=== PATIENT | female | born 1955 | race Caucasian/White ===

== ENCOUNTER 2023-06-05 22:42 | Inpatient (IN) | payer OTHER ==
--- OUTSIDE RECORDS SUMMARY | 2023-06-05 22:48 | XMS REPORT | Continuity of Care Document ---
Author Name Unknown Address [address] [place] [address] [facility] thconnect Address [address] [place] [address] Care Team Providers Care Circuit Judge Name Role Phone Provider, [facility] Attending Clinician Un available AMEENA OSBORNE Attending Clinician Unavailable Lab, [facility] I Attending Clinician Unavailab Ameena Carpio Attending Clinician [phone] Payers Payer Name Policy Type Policy Number Effective Date Expirati on Date Source [employer] INDEMNITY [id number] 2018 00:00:00 Allergies, Adverse Reactions, Alerts Allergy Name Allergy Type Status Severity Reaction(s) Onset Date Inactive Date Treating Clinician Comments Source codeine DA Active MO 06-26 00:00: 00 [facility] codeine DA Active [place] 06-15 00:00: 00 [facility] hydrocod one DA Active [place] 06-15 00:00: 00 [facility] NO KNOWN ALLERGIE S Drug Class Active [facility] Social History Social Habit Start Date Stop Date Quantity Comments Source Sex Assigned At [facility] Exposure to SARS-CoV-2 (event) Not sure [facility] Smoking Status Start Date Stop Date Source Unknown if ever smoked [facility] Encounters Start Date/Time End Date/Time Encounter Type Admission Type Attending Clinicians Care Facility Care Department Encounter ID Source 2020-05-15 00:00:00 2020-05-15 00:00:00 Telephone Provider, [facility] Special[facility] yasmin Barakat 1..840.114 [id number] [facility] 2020-05-13 19:20:00 2020-05-13 19:20:00 Outpatient AMEENA MODI [facility] [id number] [facility] 2020-05-13 19:20:00 2020-05-13 13:38:40 Outpatient AMEENA OMDI [facility] [id number] [facility] 2020-05-13 11:03:45 2020-05-13 11:23:45 Laboratory Only Lab, [facility] Sameera CastilloFormerly [facility] Professio [facility] Office Building One 1..840.114 [id number] [facility] Results Test Description Test Time Test Comments Results Resul t Comments Source - XR KNEE 1 OR 2 V RT 2018-06-28 09:41:00 Patient Name: CHUYITA EAGLE Unit No: [id number] EXAMS: CPT CODE: [id number] XR KNEE 1 OR 2 V RT 56563 AP AND LATERAL VIEW OF THE RIGHT KNEE COMMENT: Patient is status post total right knee arthroplasty. The prosthesis appears to be in good position. at 0941 Reported and signed by: Bhakti Castano MD CC: Avni Hill MD Technologist: MARIAH SOLER (RT.R) Transcribed D/ (0941) t.RAFAEL.GVG [facility] NAME: CHUYITA EAGLE [address] [facility] PHYS: Avni Lundberg MD : 1955 AGE: 63 SEX: F [place], [place] [address] LOC: Y.314 A PHONE #: [phone] EXAM DATE: 06/27/2018 STATUS: ADM IN FAX #: [phone] RAD #: D/C DT PAGE 1 Signed Report Patient Name: CHUYITA EAGLE Unit No: [id number] EXAMS: CPT CODE: [id number] XR KNEE 1 OR 2 V RT 04112 (Continued) Orig Print D/T: S: 06/28/2018 (0944) [facility] NAME: CHUYITA EAGLE [address] [facility] PHYS: Avni Lundberg MD : 1955 AGE: 63 SEX: F [place], [place] [address] LOC: Y.314 A PHONE #: [phone] EXAM DATE: 06/27/2018 STATUS: ADM IN FAX #: [phone] RAD #: D/C DT PAGE 2 Signed Report HGB [id number] 05:44:00* Test Item Value Reference Range Interpretation Comme nts HEMOGLOBIN (test code = HGB) 13.0 g/dL 12-16 N HEMATOCRIT (test code = HCT) 39.4 % 37-47 N COMPREHENSIVE METABOLIC PNSNP1187-62-02 16:15:00* Test Item Value Reference Range Interpretation Comme nts SODIUM (test code = NA) 146 mmol/L 136-145 H POTASSIUM (test code = K) 4.4 mmol/L 3.5-5.1 N CHLORIDE (test code = CL) 106.0 mmol/L 98-107 N CARBON DIOXIDE (test code = CO2) 28.4 mmol/L 21-32 N GLUCOSE (test code = GLU) 96 mg/dL 70-110 N BLOOD UREA NITROGEN (test code = BUN) 21 mg/dL 7-18 H GLOMERULAR FILTRATION RATE (test code = GFR) 74.1 >60 Unit of m easure: mL/min/1.73 m0Ytssrvyei Range:Healthy Adults >90 mL/min/1.73 m2 For Chronic Kidney Disease: Stage II Mild Decrease in GFR 60-90 Stage III Moderate Decrease in GFR 30-59 Stage IV Severe Decrease in GFR 15-29 Stage V Kidney Failure <15 CREATININE (test code = CREAT) 0.78 mg/dL 0.55-1.30 N TOTAL PROTEIN (test code = PROT) 7.0 g/dL 6.4-8.2 N ALBUMIN (test code = ALB) 4.1 g/dL 3.4-5.0 N GLOBULIN (test code = GLOB) 2.9 g/dL 2.2-4.2 N ALBUMIN/GLOBULIN RATIO (test code = A/G) 1.4 0.7-2.0 N CALCIUM (test code = CA) 9.4 mg/dL 8.2-10.1 N BILIRUBIN TOTAL (test code = BILT) 0.50 mg/dL 0.2-1.00 N SGOT/AST (test code = AST) 32.0 U/L 15-37 N SGPT/ALT (test code = ALT) 41.0 U/L 12-78 N Please note new normal range. ALKALINE PHOSPHATASE TOTAL (test code = ALKP) 132 U/L 46-116 H CBC W/AUTO YLDV1289-67-13 15:31:00* Test Item Value Reference Range Interpretation Comme nts WHITE BLOOD CELL (test code = WBC) 9.2 K/mm3 5.8-11.0 N RED BLOOD CELL (test code = RBC) 5.03 M/mm3 4.2-5.4 N HEMOGLOBIN (test code = HGB) 14.2 g/dL 12-16 N HEMATOCRIT (test code = HCT) 44.0 % 37-47 N MEAN CELL VOLUME (test code = MCV) 88 fL 80-98 N MEAN CELL HGB (test code = MCH) 28.2 pg 27-34 N MEAN CELL HGB CONCENTRATION (test code = MCHC) 32.3 g/dL 30.8-34.1 N RED CELL DISTRIBUTION WIDTH (test code = RDW) 12.9 % 11-16 N PLT (test code = PLT) 305 K/mm3 130-400 N MEAN PLATELET VOLUME (test c ode = MPV) 10.4 fL 8.9-12.1 N NEUTROPHIL % (test code = NT%) 55.6 % 45-70 N LYMPHOCYTE % (test code = LY%) 30.7 % 20-40 N MONOCYTE % (test code = MO%) 6.8 % 3-10 N EOSINOPHIL % (test code = EO%) 5.3 % 1-5 H BASOPHIL % (test code = BA%) 1.2 % 0.0-1.1 H NEUTROPHIL # (test code = NT#) 5.13 K/mm3 2.00-7.50 N LYMPHOCYTE # (test code = LY#) 2.83 K/mm3 1.50-4.00 N MONOCYTE # (test code = MO#) 0.63 K/mm3 0.2-0.8 N EOSINOPHIL # (test code = EO#) 0.49 K/mm3 0.04-0.4 H BASOPHIL # (test code = BA#) 0.11 K/mm3 0.02-0.10 H MANUAL DIFF REQUIRED (test c ode = MDIFF) NO MANUAL DIFF NUCLEATED RED BLOOD CELL (te st code = NRBC) 0 % 0-0 N Notes Date/Time Note Provider Source 2018-06-28 11:19:00 [id number] QGtpt7+MkeyNDZhlMyzpt8RPhOi/S sydPOIQcigG76fBnDqGX10sMuC60PJRyj8551-90-94N80:19 :00 [facility] ([facility])Clinical NoteREPORT#:[id number] REPORT STATUS: SignedDATE:06/28/18 TIME: 1119 PATIENT: CHUYITA EAGLE UNIT #: [id number]#: [id number] [facility] [birth year] [facility] 63 SEX: F ATTEND: Avni Hill [facility] AUTHOR: Quinn Thibodeaux MD * ALL edits or amendments must be made on the electronic/computer document * Clinical NoteNote:[facility] Quinn Sheriff M.D.(cell text [phone]) Assessment/Plan1.) Anemia of acute blood loss- .Hgb 13.0, asymptomatic.2.) S/p Right TKA- .acute pain control. Anticoagulation as per Dr. Hill.3.) Hypertension- .follow BP and hold Rxs if SBP<120.4.) GERD- .continue on Rx.* OK for DISCHARGE per Internal Medicine. Prior Events/Overnight: Uneventful.Chief Complaint: No significant complaints. ObjectiveVital Signs Date Temp Pulse Resp B/P B/P Mean Pulse Ox FiO2 06/27-06/28 96.1-98.2 60-83 18-20 126-147/69-83 92-104.4 86-99 32-96 Gen: Alert, oriented, in mild discomfort Neck: No Masses, No Thyromegaly-CV: Regular Rate Rhythm / Edema- no significant Resp: Clear To Ascultation / Normal Respiratory EffortABD: NonTender / NonDistended MS/Skin: No Cyanosis / No nodules / +Ankle DF/PF / nl capillary refill of toes.Other: drain out Labs/X-ray: Laboratory Tests: 06/28 0450 Chemistry Sodium (136 - 145 mmol/L) 141 Potassium (3.5 - 5.1 mmol/L) 4.6 Chloride (98 - 107 mmol/L) 104.0 Carbon Dioxide (21 - 32 mmol/L) 26.0 BUN (7 - 18 mg/dL) 15 Creatinine (0.55 - 1.30 mg/dL) 0.88 Glomerular Filtr Rate (>60) 64.5 Glucose (70 - 110 mg/dL) 124 H Calcium (8.2 - 10.1 mg/dL) 8.7 Hematology Hgb (12 - 16 g/dL) 13.0 Hct (37 - 47 %) 39.4 Quinn Sheriff M.D. at 1220 RPT #:[id number] OF REPORT CLClinical otfo4302-84-01A84:19:00Y.JSLP65874808-0943WRCkcod able for patient ehynAPCNIWXTFSLMVK5842-80-27Z73:20:16 [facility] 2018-06-28 06:41:00 UUtnfelsxul0762813HI CTlTOr/0QBLPvyR/Z9U64OBi3A/Yv jLWUgSvLjNvMjTHPS6QVA0OSA8wbEHdZd0015-33-93V81:41 :[id number] [address] PATIENT NAME: CHUYITA EAGLE ADMIT DATE: 06/27/18ACCOUNT NO: [id number] ROOM NO: Y.[facility] AGE: 63 REPORT TYPE: DISCHARGE SUMMARY REPORT SEX: F ADMITTING PHYSICIAN:Avni Hill MD ATTENDING PHYSICIAN:Avni Hill MD ADMISSION DATE: 06/27/2018DISCHARGE DATE: 06/28/2018 ADMITTING DIAGNOSIS: Right knee osteoarthritis. PRIMARY DISCHARGE DIAGNOSIS: Right knee osteoarthritis, M17.11. OPERATIVE PROCEDURES PERFORMED: On 06/27/2018, RIGHT TOTAL KNEE ARTHROPLASTY,07989. BRIEF HISTORY OF PRESENT ILLNESS: Ms. Eagle is a very pleasant 01-otot-hnwtmhdyc, who has been having progressive pain, swelling, deformity involving theright knee. Her symptoms are occurring with daily activities. She is admittedfor right total knee arthroplasty. HOSPITAL COURSE: Ms. Eagle was taken to the operative suite on the date ofadmission where she underwent a right total knee arthroplasty withoutcomplications. Postoperatively, the patient received a total of 24 hours of IVantibiotic therapy. On the day of discharge, she is eating and voiding withoutdifficulty. Her dressing is dry and intact. Her neurovascular status isintact. Her hemoglobin is 13.0. She is independently ambulatory. Ms. Eagle will be discharged to home today. Office followup in 2 weeks. Outpatient physiotherapy has been prescribed. She is on aspirin as well ascompressive stockings for DVT prophylaxis. CONDITION ON DISCHARGE: She is in stable condition at the time of dischargewithout questions or complaints. DISCHARGE MEDICATIONS: Please see discharge medication reconciliation sheet. Dictated By: Avni Hill MD WT: DS:BAKARI/OSKAR/NTSDD: 06/28/2018 06:41:38DT: 06/29/2018 00:15:49Conf#: [id number]/DID#: [id number] Authenticated by Avni Hill MD On 06/29/2018 06:35:41 AM PATIENT NAME: CHUYITA EAGLE at 0636 PATIENT NAME: CHUYITA EAGLE gmvxqon4710-32-07G05:15:00Y.MKU50481987-7606GDTlr ilable for patient indxCWGZNQIZMIMLZB1551-99-00S76:35:36 [facility] 2018-06-27 17:11:00 PCnpqsnlniu9614189eu YS2hLV3T5mxpOkfe7iZaojbnPAIDR AnF2g4V+f7YUBT8sYELNyXlHYuOj40Uv/8765-41-01G23:11 :00 [facility] ([facility])Clinical NoteREPORT#:[id number] REPORT STATUS: SignedDATE:06/27/18 TIME: 1711 PATIENT: CHUYITA EAGLE UNIT #: [id number]#: [id number] ROOM/BED: [facility]-ADOB: [birth year] AGE: 63 SEX: F ATTEND: Avni Hill [facility] AUTHOR: Quinn Thibodeaux MD * ALL edits or amendments must be made on the electronic/computer document * Clinical NoteNote:[facility] Quinn Sheriff MD(cell text [phone])Internal Medicine Consult at request of : Dr Avni Hill Chief Complaint: Right knee pain HPI: .63 yo F with now s/p Right total knee arthroplasty (TKA) by Dr. Hill. Ms. Eagle relates years of progressive right knee pain (recently severe), worsewith activity, and achy and stiff at times in quality. She has failed conservative management. Comorbidities: see below. PmHx: .Hypertension, ALLERGY: Allergies:codeine (Coded, Intermediate, NAUSEA AND VOMITING, 06/26/18)hydrocodone (Coded, Intermediate, VOMITING, 06/15/18) Home Medications: Home Medications:IBUPROFEN (ADVIL) 400 MG PO Q6H PRN PAIN CHOLECALCIFEROL (VITAMIN D3) (VITAMIN D3) 1,000 UNITS PO DAILY ASCORBIC ACID (VITAMIN C) 500 MG PO DAILY SgHx: .cholecystectomy, CTR, Hysterectomy SHx: Tob: none FHx: .No significant hx of DVT/PE.Alcohol: none Drugs: none Lives: with spouse ROS: [X] all systems reviewed and negative except-[ ] Con: . Fever/ Wt loss [ ] CV: cpain/edema. [ ] Pul: . cough/SOB [ ] GI: hematemesis/diarrhea [ ] : . dysuria or hematuria [X] MS: knee pain[ ] Neuro: . headache/loss sensation [ ] Heme: . adenopathy/Ecchymosis Vitals:Vital Signs:Date Time Temp Pulse Resp B/P B/P Pulse O2 O2 Flow FiO2 Mean Ox Delivery Rate/ 1533 96.1 76 18 147/83 104.4 99 Nasal bdzxudn62/19 1142 96.8 65 14 156/82 106.6 97 Nasal oardrdq66/19 0921 96 Nasal 2.379274 28 dfmlmol96/19 0913 Nasal 3.316906 uqyvzjc94/19 0903 95.0 63 18 166/98 120.5 97 Nasal xyzndhn23/19 0840 98.2 67 14 160/90 97 Nasal 3.665251 eakajvl96/19 0830 63 20 165/86 94 Nasal 3.133087 uaadbfo93/19 0824 Nasal 3.855051 dolfupf08/19 0815 80 20 171/73 96 Nasal 3.249493 eoccymh02/19 0800 85 20 187/91 98 Nasal 3.363332 amwksmx24/19 0749 Venti mask 8.25969596/19 0746 98.0 81 16 116/64 94 Simple 8.546801 mask02/19 0635 97.3 55 20 185/80 98 Gen: Alert, in mild discomfort, nl nutrition.EYE: Nl lids conjunctiva.ENT: Nl ears Nose, nl lips,. Neck: Supple, nl thyroid, No masses.CV: Regular Rate Rhythm, no heave or significant murmur. Edema- none Feet toes normal temperature.RESP: Clear to Auscultation, normal Respiratory effort.ABD: Soft, NonDistended,.LYM: No significant cervical Lymphadenopathy.MS: No Clubbing, cyanosis, Knee is wrapped, drain in placeNEURO: Nonfocal, grossly normal sensation of LE, +Ankle DF/PFPSY: Normal insight, Normal mood, oriented, . Preop Labs (06/15/18): CBC:. Hgb 14.2, Plt 305, CHEM: Na 146, K 4.1, Cr 0.78(eGFR 74.1%),.EKG: Sinus bradycardia at 57 bpm (medium to high risk of complications or morbidity) (major surgery) (IV sedative, meds) Assessment Plan1.) Anemia of Acute Blood Loss- .will recheck 06/28/18. 2.) S/p Right TKA- .acute pain control. Anticoagulation as per Dr. Hill.3.) Hypertension- .follow BP and hold Rxs if SBP<120.4.) OsteoArthritis- .continue on symptomatic Rx. Quinn Sheriff M.D. Thanks! at 1220 RPT #:[id number] OF REPORT CLClinical nahg0439-95-55O80:11:00Y.TKVD07031959-1016ILFvxwi able for patient puqxOOVJPLGYOXFNMG5526-60-07L54:19:36 [facility] 2018-06-27 07:43:00 HWwdkhdacfi9240185bi WMxu52Ra7fL/usIgsO86Dy711dg8N 5vxDREJYIaghsDGedTr9k4ZJRi7EHZBOj7951-10-63Z87:43 :00 [facility] ([facility])Brief Op NoteREPORT#:[id number] REPORT STATUS: SignedDATE:06/27/18 TIME: 07 PATIENT: CHUYITA EAGLE UNIT #: [id number]#: [id number] [address] [birth year] AGE: 63 SEX: F ATTEND: Avni Hill MDA AUTHOR: Avni Hill MD * ALL edits or amendments must be made on the electronic/computer document * Op/Inv Proc Note - BriefPre-procedure diagnosis:rt knee oa Post-procedure diagnosis: same as pre procedure dxProcedures performed:rt total knwePrimary Surgeon:dr Reilly(s): frankie hdezFindings:Portions of this note were transcribed by a Scribe. I, personally performed thehistory, physical exam and medical decision making; and confirmed the accuracy of the information in the transcribed note. Complications: noneEstimated blood loss in ml's: 50 mlSpecimens removed/altered: rt knee bone Portions of this section were scribed by Frankie Hdez on 06/27/18 at 0743 at 0819 RPT #:[id number] OF REPORT OPOperative uwltdy7136-94-44M48:43:00Y.NZEV43125671-7406AIKfl ilable for patient nvslNXUREZBRIVMZRD8158-98-26S86:19:04 [facility] 2018-06-27 07:39:00 AUlkpvjmldm0545996ha PJyiPrgj+etXE7Z5qlbj1/w9OxIzK uMQN8+mWxM257TthOtFeJu3oAu+Izt9Y61518-79-94B83:39 :[id number] [facility] [place] [address] PATIENT NAME: CHUYITA EAGLE ADMIT DATE: 06/27/18ACCOUNT NO: [id number] ROOM NO: Y.314 AGE: 63 REPORT TYPE: OPERATIVE REPORT SEX: F ADMITTING PHYSICIAN:Avni Hill MD ATTENDING PHYSICIAN:Avni Hill MD OPERATION DATE: 06/27/2018 PREOPERATIVE DIAGNOSIS: Right knee osteoarthritis. POSTOPERATIVE DIAGNOSIS: Right knee osteoarthritis, M17.11. PROCEDURE PERFORMED: Right total knee arthroplasty, 98725. IMPLANTS UTILIZED: DePuy Sigma total knee system, size-2 right posteriorstabilized femur, size-2 fixed-bearing tibial tray, 2 x 8 mm fixed-bearingposterior stabilized tibial insert, 32-mm oval patella. All componentscemented. ANESTHESIA: General. TOURNIQUET TIME: 22 minutes. ESTIMATED BLOOD LOSS: Less than 25 mL. SURGEON: Avni Hill MD DROP WIRE ALINER: SHERYL Bush CLINICAL INDICATIONS: Ms. Eagle is a very pleasant 63[place] who is having severe and progressive pain involving herright knee. Her pain is occurring with daily activities. She is admitted forright total knee arthroplasty. PROCEDURE IN DETAIL: RIGHT TOTAL KNEE ARTHROPLASTY, 29704. Ms. Eagle was brought to the operative suite, at which time, she was placed insupine position on the OR table. Routine monitors were established. Generalanesthesia was delivered. After satisfactory induction of general anesthesia, atourniquet was applied to the patient's right lower extremity per and the right leg was then circumferentially prepped and draped inusual sterile fashion per Mr. Hdez. The leg was then elevated,exsanguinated, tourniquet insufflated to 300 mmHg. The knee was flexed to 100degrees. Anterior midline incision was performed. Medial parapatellararthrotomy was performed. Patella was everted laterally. Severe grade IVchanges noted in all 3 compartments. Hypertrophic osteophytes were resected. Ligament balancing was achieved. Medial and lateral menisci were excised. Anterior and posterior cruciate ligaments were then resected. PATIENT NAME: CHUYITA EAGLE Intramedullary instrumentation was then used to resect distal femur to 5 degreesof valgus. Distal femur was appropriately sized and a size-2 cutting block wasused to create the anterior, followed by posterior, followed by chamfer cuts. The appropriate osteotomy guide was then placed across distal femur and thefemoral notch was resected. The proximal tibia was translated anteriorly. Utilizing extramedullary instrumentation, the proximal tibia was resectedperpendicular to its mechanical axis resecting 10 mm from the lateral tibialplateau. The proximal tibia was appropriately sized and a size-2 baseplate wasnoted to provide optimal coverage. Appropriate rotatory alignment was achievedand the appropriate reamer and broach were used to create center portion of thetibial insert. The patella was then resected so as to ensure episcopal ofnormal height with prosthesis in place. Flexion as well as extension gaps were checked and noted to be equal. Trialcomponents were placed into the joint. Optimal stability was noted utilizing an8-mm insert, 0 degrees of gravity extension with 135 degrees of gravity flexionwere present. Patellofemoral tracking was normal limits with no varus or valgusinstability noted. The knee was stable in both flexion as well as extension. The trial components were removed. The bony surfaces were prepared with cementimplantation utilizing pulsatile lavage irrigation. The tibial tray wascemented into place followed by cement implantation of femoral component. Polyethylene insert was then placed on tibial tray and the knee was placed infull extension. Patellar component was cemented. Tourniquet deflated. Meticulous hemostasis achieved with Bovie electrocautery. Copious antibioticlavage was performed. Medium Hemovac drain was then placed deep to the extensormechanism. The knee was placed into 70 degrees of flexion. Arthrotomy closedin watertight fashion 2.0 Quill suture. Skin was closed with interrupted 0Vicryl, followed by 2-0 Vicryl, followed by surgical carolyn per . Sterile dressing was applied by Mr. Hdez. The patient wasextubated and taken to the recovery room awake and alert without any anestheticor operative complications. At the end of the case, sponge and needle countswere correct x2. During the procedure, Mr. Hdez was invaluable inpositioning the patient as well as preparation and draping of the extremity. Heis also responsible for providing exposure during the procedure as well as inclosure of the postoperative incisions and application of postoperativedressing. Dictated By: Avni Hill MD WT: OP:BAKARI/OSKAR/NTSDD: 06/27/2018 07:39:33DT: 06/27/2018 08:04:03Conf#: [id number]/DID#: [id number] Authenticated by Avni Hill MD On 06/27/2018 09:24:20 AM at 0924 PATIENT NAME: CHUYITA EAGLE lbtrxw6206-55-79Z15:04:00Y.UYQ95221723-8745YHJkdt lable for patient qtiwHEJOZTRCIQGLCO5298-25-80T34:24:07 [facility] 2018-06-26 12:49:00 PQxgoqvchhn8662355pA H13kG4mdcKB/VXwsKZoHqZkSOEqoY r8ayHj/D1s+lfZa/zARa8ehOSYTNXPm4k3587-64-16H59:49 :[id number] [facility] [place] [address] PATIENT NAME: CHUYITA EAGLE ADMIT DATE: ACCOUNT NO: [id number] ROOM NO: AGE: 63 REPORT TYPE: HISTORY AND PHYSICAL SEX: F ADMITTING PHYSICIAN:Avni Hill MD ATTENDING PHYSICIAN:Avni Hill MD ADMISSION DATE: 06/27/2018 ADMITTING DIAGNOSIS: Right knee osteoarthritis, M17.11. HISTORY OF PRESENT ILLNESS: Ms. Eagle is a 63-year-old female, who is havingprogressive and severe pain involving her right knee. She is employed as asales associate. The pain is occurring with daily activities. Her pain hasbeen refractory to extensive nonoperative intervention including icing,anti-inflammatories as well as intraarticular corticosteroid injections andbracing. Her clinical as well as radiographic evaluation revealed severe valgusalignment with wplj-ti-tzor disease. Due to her disabling pain and lack ofresponse to nonoperative treatment, Ms. Eagle is admitted for right total kneearthroplasty. PAST MEDICAL HISTORY: Unremarkable. PAST SURGICAL HISTORY: Previous surgeries include cholecystectomy and partialhysterectomy. FAMILY HISTORY: Unremarkable. SOCIAL HISTORY: She is . She is a salesman/owner. She does not smokenor does she drink. MEDICATIONS: No medications are listed. ALLERGIES: SHE NOTES SIGNIFICANT NAUSEA WITH ANALGESICS. REVIEW OF SYSTEMS: Negative for ongoing angina, shortness of breath or dyspnea. PHYSICAL EXAMINATION:VITAL SIGNS: She is 5 feet 8 inches tall, 78 kilograms.HEENT: Within normal limits.CARDIAC: Regular rate and rhythm. No murmur.CHEST: Clear.ABDOMEN: Benign.BACK: No CVA tenderness.PERTINENT ORTHOPEDIC EVALUATION: Leg lengths were equal. Full painless motionof both hips. Her right knee is in valgus. Painful passive motion. She has 0to 120 degrees of motion. There is no instability. Her distal neurovascularstatus is intact. PATIENT NAME: CHUYITA EAGLE DIAGNOSTIC DATA: Radiographic evaluation reveals valgus alignment qzfprdrn-ih-iscl disease. ASSESSMENT: Right knee osteoarthritis. SURGICAL PLAN: Right total knee arthroplasty. I have gone over at length withMs. Eagle the associated risks involved with this procedure. She understandsthat these risks include but not limited to bleeding, transfusion requirement,infection, neurovascular damage, persistent pain, loss of motion, need forfurther operative intervention, painful scar, leg length inequality, looseningof the prosthesis requiring possible revision, persistent limp, deep veinthrombi leading to pulmonary emboli along with complications secondary toanesthesia. Ms. Eagle further understands that there are absolutely noguarantees or warranties that she will be pain free after the procedure. Sheaccepts these risks and gives her informed consent to proceed. Dictated By: Avni Hill MD WT: HP:YMICHELLE/ISABELRO/NTSDD: 06/26/2018 12:49:34DT: 06/26/2018 13:26:44Conf#: [id number]/DID#: [id number] by Avni Hill MD On 06/26/2018 05:01:18 PM at 1701 PATIENT NAME: CHUYITA EAGLE and physical nntywuthfrd6170-57-86P66:26:00Y.ABG51734757-8676Y VAvailable for patient egtoXBLDGPTUAFBCBV4525-53-25M98:01:18 [facility] 2018-06-15 14:54:00 SUoknsxdyuh5716763DS XsE6qwYhqVl5jrFIUbSkBUgqYBnKq utLkYCWgDNlCVseCHTd/nww4tHzjq5mGF3610-52-61S14:54 :[id number] [place] [address] PATIENT NAME: CHUYITA EAGLE ADMIT DATE: ACCOUNT NO: [id number] ROOM NO: AGE: 63 REPORT TYPE: ELECTROCARDIOGRAM SEX: F ADMITTING PHYSICIAN:Avni Hill MD ATTENDING PHYSICIAN:Avni Hill MD Order:[id number] Reason : PRE-OP CLEARANCE Test Date/Time Stamp:TueJun 15 2018 14:54:37Blood Pressure : / mmHGVent. Rate : 057 BPM Atrial Rate : 057 BPM P-R Int : 146 ms QRS Dur : 082 ms QT Int : 414 ms P-R-T Axes : 028 035 066 degrees QTc Int : 402 ms Sinus bradycardiaPossible Lateral infarct , age undeterminedAbnormal ECGNo previous ECGs availableConfirmed by BETHANY WIGGINS MD ([id number]) on 06/17/2018 5:20:59 PM Referred By: Avni Hill Confirmed by:BETHANY WIGGINS MD at 1721 PATIENT NAME: CHUYITA EAGLE .[id number] AVAvailable for patient [id number] [facility]
[2023-06-05] MEDS ORDERED: LEVALBUTEROL 1.25 MG/3 ML NEB ONE (22:59)
--- NOTE | 2023-06-06 01:11 | EDPHYS ---
Physician Documentation [facility] Name: Brielle Sidhu Age: 68 yrs Sex: Female : 1955 Arrival Date: 06/05/2023 Time: 22:42 Bed 14 Private MD: ED Physician Travis Walls HPI: 06/05 23:05 This 68 yrs old Female presents to ER via Ambulatory with complaints of cough, sob. rn 23:31 The patient has shortness of breath at rest, with light activity. rn 23:33 Onset: The symptoms/episode began/occurred 1 week(s) ago. Duration: The symptoms are rn intermittent. The patient's shortness of breath is aggravated by coughing. Associated signs and symptoms: Pertinent positives: non-productive cough, Pertinent negatives: chest pain, hemoptysis. Severity of symptoms: At their worst the symptoms were mild in the emergency department the symptoms are unchanged. The patient has experienced similar episodes in the past. Patient reports feels like allergies acting up for the last week. Now having low-grade temperature of 99 degrees associated with nonproductive cough. Reports shortness of breath. No chest pain. No sick contacts. Reports feeling generalized weakness and malaise. Historical: - Allergies: 22:55 No Known Allergies; as6 - PMHx: 22:55 None; as6 - PSHx: 22:55 Total abdominal hysterectomy; knee; as6 - Immunization history:: Adult Immunizations up to date. - Social history:: Smoking status: Patient denies any tobacco usage or history of. - Family history:: not pertinent. - Hospitalizations: : No recent hospitalization is reported. ROS: 23:33 Constitutional: Positive for fever and chills Eyes: Negative for injury, pain, redness, rn and discharge, Neck: Negative for injury, pain, and swelling, Cardiovascular: Negative for chest pain, palpitations, and edema, Respiratory: Positive for cough and shortness of breath Abdomen/GI: Negative for abdominal pain, nausea, vomiting, diarrhea, and constipation, MS/Extremity: Negative for injury and deformity, Skin: Negative for injury, rash, and discoloration, Neuro: Positive for generalized weakness Exam: 23:33 Constitutional: This is a well developed, well nourished patient who is awake, alert, rn and in no acute distress. Head/Face: Normocephalic, atraumatic. ENT: No stridor Cardiovascular: Regular rate and rhythm. No pulse deficits. Respiratory: Clear bilateral breath sounds, mild tachypnea. No retractions. Neuro: Awake and alert, GCS 15 06/06 03:25 ECG was reviewed by the Attending Physician. rn Vital Signs: 06/05 22:51 BP 157 / 88; Pulse 81; Resp 20 S; Temp 98.6(TE); Pulse Ox 96% on R/A; as6 22:54 Weight 72.57 kg (R); Height 4 ft. 11 in. (R); Pain 0/10; as6 06/06 03:10 BP 132 / 80; Pulse 86; Resp 17; Pulse Ox 95% ; pm6 06/05 22:54 Body Mass Index 32.32 (72.57 kg, 149.86 cm) as6 22:54 Pain Scale: Adult as6 MDM: 06/05 22:47 Patient medically screened. rn 06/06 01:09 Differential diagnosis: pneumonia, pulmonary edema, Flu, COVID. Data reviewed: vital rn signs, nurses notes, lab test result(s), radiologic studies, plain films, and as a result, I will. Consideration of Admission/Observation Escalation of care including admission/observation considered. ED course: Patient with possible early pneumonia on x-ray. Had long discussion with patient and regarding admission versus discharge. At this time patient without oxygen requirement and states breathing okay, she prefers to go home and chooses to be discharged with oral antibiotics and will return if anything worsens. Will discharge with oral antibiotics and nausea medication. Given strict return precautions and understood.. 02:26 ED course: Patient initially going to be discharged but patient started to complain of rn more dyspnea and became more tachypneic. Oxygen has not dropped below 94% but patient appears miserable. After going over results and options patient request admission to the hospital as she is uneasy about going home. Will admit to Dr. Griffin for further care.. 06/05 22:55 Order name: Flu; Complete Time: 01:03 rn 06/05 23:05 Order name: SARS-COV-2 RT PCR; Complete Time: 01:03 la4 06/06 02:23 Order name: Blood Culture Adult (2) rn 06/06 02:23 Order name: CBC with Diff; Complete Time: 03:38 rn 06/06 02:23 Order name: CMP; Complete Time: 03:38 rn 06/06 02:23 Order name: Lactate w/ 2H reflex if indic.; Complete Time: 03:38 rn 06/06 02:23 Order name: Protime (+inr); Complete Time: 03:38 rn 06/06 02:23 Order name: Ptt, Activated; Complete Time: 03:38 rn 06/06 02:23 Order name: BNP; Complete Time: 03:38 rn 06/06 03:21 Order name: Glucose, Ancillary Testing; Complete Time: 03:38 EDMS 06/05 22:56 Order name: XRAY Chest (1 view) rn 06/06 02:23 Order name: EKG; Complete Time: 02:23 rn 06/06 02:23 Order name: Accucheck; Complete Time: 03:19 rn 06/06 02:23 Order name: Cardiac monitoring; Complete Time: 03:19 rn 06/06 02:23 Order name: EKG - Nurse/Tech; Complete Time: 03:19 rn 06/06 02:23 Order name: IV Saline Lock - Large Bore; Complete Time: 03:19 rn 06/06 02:23 Order name: Labs collected and sent; Complete Time: 03:19 rn 06/06 02:23 Order name: O2 Per Protocol; Complete Time: 03:19 rn 06/06 02:23 Order name: O2 Sat Monitoring; Complete Time: 03:19 rn 06/06 02:23 Order name: Vital Signs; Complete Time: 03:19 rn EC:25 Rate is 85 beats/min. Rhythm is regular. QRS [place] is Normal. MS interval is normal. QRS rn interval is normal. QT interval is normal. No Q waves. T waves are Normal. No ST changes noted. Clinical impression: Normal ECG. Interpreted by me. Reviewed by me. Administered Medications: 06/05 23:05 Drug: Levalbuterol Inhalation 1.25 mg Inhalation once Route: Inhalation; la4 06/06 02:23 Not Given (Duplicate Order): [id number] mg PO once rn 02:23 Not Given (Duplicate Order): amoxicillin-ztkqbdduffv391 mg PO once rn 02:56 Drug: Tussionex Pennkinetic ER PO Suspension 2.5 ml PO once Route: PO; lg3 03:34 Follow up: Response: No adverse reaction; No change in condition lg3 02:58 Drug: Ondansetron IVP 4 mg IVP once; over 2 minutes Route: IVP; Site: right antecubital;lg3 03:34 Follow up: Response: No adverse reaction; Marked relief of symptoms; Nausea is decreasedlg3 03:18 Drug: Zithromax IVPB 500 mg IVPB once over 1 hrs; mix in 250 mL NS Route: IVPB; Infused lg3 Over: 1 hrs; Site: right antecubital; 03:19 Drug: Rocephin IV 1 grams IV at calculated rate once; Given slow IV push per pharmacy lg3 instructions Route: IV; Rate: calculated rate; Site: right antecubital; 03:34 Follow up: Response: No adverse reaction; IV Status: Completed infusion; IV Intake: [id number] Disposition Summary: 06/06/23 02:25 Hospitalization Ordered Notes: Hospitalization Status: Inpatient Admission rn Provider: Kashmir Griffin rn Condition: Stable(06/06/23 02:25) rn Problem: new(06/06/23 02:25) rn Symptoms: have worsened(06/06/23 02:25) rn Bed/Room Type: Standard rn Location: Telemetry/MedSurg (Inpatient)(06/06/23 09:37) bd Room Assignment: 204(06/06/23 09:37) bd Diagnosis - Pneumonia, unspecified organism(06/06/23 02:25) rn - Dyspnea, unspecified rn Forms: - Medication Reconciliation Form rn - SBAR form rn - Leadership Thank You Letter rn Signatures: Dispatcher [employer] [facility] Katlin Teixeira Travis Walls MD MD rn Able, Lacie RN RN lg3 Maynor Lopez RN RN as6 Sharita Spann RN RN richmond4 Patricia Romero pm6 Corrections: (The following items were deleted from the chart) 06/05 23:04 22:56 Chest Pa And Lat (2 Views)+RAD.RAD.BRZ ordered. [facility] 06/06 00:37 06/05 22:56 SARS-COV-2 Antigen Rapid+I.LAB.BRZ ordered. [facility] 06/06 02:25 01:11 Home rn rn 02:25 01:11 new rn rn 02: 01:11 have improved rn rn 02: 01:11 Stable rn rn 02: 01:11 Pneumonia, unspecified organism rn rn 02:37 02:25 Telemetry/MedSurg (Inpatient) rn pm6 02:37 02:25 rn pm6 02:37 02:37 pm6 pm6 09:37 02:37 [facility] pm[facility] bd 09:37 02:37 ERHOLD- pm6 bd
--- NOTE | 2023-06-06 01:11 | ER ---
Nurse's Notes [facility] Name: Brielle Sidhu Age: 68 yrs Sex: Female : 1955 Arrival Date: 06/05/2023 Time: 22:42 Bed 14 Private MD: Diagnosis: Pneumonia, unspecified organism;Dyspnea, unspecified Presentation: 06/05 22:51 Chief complaint: Patient states: allergy symptoms the last several weeks but today pt as6 has had a worsening shortness of breath and cough. Coronavirus screen: At this time, the client does not indicate any symptoms associated with coronavirus-19. Ebola Screen: No symptoms or risks identified at this time. Initial Sepsis Screen: Does the patient meet any 2 criteria? No. Patient's initial sepsis screen is negative. Does the patient have a suspected source of infection? No. Patient's initial sepsis screen is negative. Risk Assessment: Do you want to hurt yourself or someone else? Patient reports no desire to harm self or others. Onset of symptoms was June 05, 2023. 22:51 Acuity: MINAL 3 as6 22:51 Method Of Arrival: Ambulatory as6 Triage Assessment: 23:37 General: Appears uncomfortable, Behavior is calm, cooperative, appropriate for age. la4 Neuro: No deficits noted. Balderas Agitation-Sedation Scale (RASS): 0 - Alert and Calm Level of Consciousness is awake, alert, obeys commands, Oriented to person, place, time, situation. Cardiovascular: No deficits noted. Heart tones S1 S2 Capillary refill < 3 seconds is brisk fingers Patient's skin is warm and dry. Respiratory: Reports shortness of breath at rest cough that is non-productive, dry, persistent Airway is patent Trachea midline Respiratory effort is even, unlabored, Respiratory pattern is regular, symmetrical, Breath sounds are clear Onset: The symptoms/episode began/occurred today, the patient has moderate shortness of breath. GI: Bowel sounds present X 4 quads. Historical: - Allergies: 22:55 No Known Allergies; as6 - PMHx: 22:55 None; as6 - PSHx: 22:55 Total abdominal hysterectomy; knee; as6 - Immunization history:: Adult Immunizations up to date. - Social history:: Smoking status: Patient denies any tobacco usage or history of. - Family history:: not pertinent. - Hospitalizations: : No recent hospitalization is reported. Screenin:35 [facility] ED Fall Risk Assessment (Adult) History of falling in the last 3 months, la4 including since admission No falls in past 3 months (0 pts) Confusion or Disorientation No (0 pts) Intoxicated or Sedated No (0 pts) Impaired Gait No (0 pts) Mobility Assist Device Used No (0 pt) Altered Elimination No (0 pt) Score/Fall Risk Level 0 - 2 = Low Risk Oriented to surroundings, Provided non-skid footwear, Hourly rounding (assess needs \T\ fall precautionary measures) done. Abuse screen: Denies threats or abuse. Denies injuries from another. Nutritional screening: No deficits noted. Tuberculosis screening: No symptoms or risk factors identified. Assessment: 23:07 Pain: Denies pain. Cardiovascular: Heart tones S1 S2 Capillary refill < 3 seconds is la4 brisk fingers Patient's skin is warm and dry. Rhythm is regular. Respiratory: frequent dry cough noted Breath sounds are clear bilaterally. Respiratory: Airway is patent Respiratory effort is even, unlabored, Respiratory pattern is regular, symmetrical, cough. Vital Signs: 22:51 BP 157 / 88; Pulse 81; Resp 20 S; Temp 98.6(TE); Pulse Ox 96% on R/A; as6 22:54 Weight 72.57 kg (R); Height 4 ft. 11 in. (R); Pain 0/10; as6 06/06 03:10 BP 132 / 80; Pulse 86; Resp 17; Pulse Ox 95% ; pm6 06/05 22:54 Body Mass Index 32.32 (72.57 kg, 149.86 cm) as6 22:54 Pain Scale: Adult as6 ED Course: 06/05 22:44 Patient arrived in ED. ag3 22:47 Travis Walls MD is Attending Physician. rn 22:54 Triage completed. as6 22:54 Arm band placed on. as6 22:56 Sharita Spann, OSCAR is Primary Nurse. la4 22:57 Bed in low position. Call light in reach. Side rails up X 1. Provided Education on: la4 Plan of care. Report received from Maynor MOORE. 23:35 No provider procedures requiring assistance completed. la4 23:36 XRAY Chest (1 view) In Process Unspecified. EDMS 06/06 02:25 Kashmir Griffin MD is Hospitalizing Provider. rn 02:56 Inserted saline lock: 20 gauge in right antecubital area, using aseptic technique. lg3 Blood collected. 02:57 Blood Culture Adult (2) Sent. lg3 02:57 CBC with Diff Sent. lg3 02:57 CMP Sent. lg3 02:57 Lactate w/ 2H reflex if indic. Sent. lg3 02:57 Protime (+inr) Sent. lg3 02:57 Ptt, Activated Sent. lg3 10:28 Patient admitted, IV remains in place. ko1 Administered Medications: 06/05 23:05 Drug: Levalbuterol Inhalation 1.25 mg Inhalation once Route: Inhalation; la4 06/06 02:23 Not Given (Duplicate Order): [id number] mg PO once rn 02:23 Not Given (Duplicate Order): amoxicillin-gkxgrmebted485 mg PO once rn 02:56 Drug: Tussionex Pennkinetic ER PO Suspension 2.5 ml PO once Route: PO; lg3 03:34 Follow up: Response: No adverse reaction; No change in condition lg3 02:58 Drug: Ondansetron IVP 4 mg IVP once; over 2 minutes Route: IVP; Site: right antecubital;lg3 03:34 Follow up: Response: No adverse reaction; Marked relief of symptoms; Nausea is decreasedlg3 03:18 Drug: Zithromax IVPB 500 mg IVPB once over 1 hrs; mix in 250 mL NS Route: IVPB; Infused lg3 Over: 1 hrs; Site: right antecubital; 03:19 Drug: Rocephin IV 1 grams IV at calculated rate once; Given slow IV push per pharmacy lg3 instructions Route: IV; Rate: calculated rate; Site: right antecubital; 03:34 Follow up: Response: No adverse reaction; IV Status: Completed infusion; IV Intake: [id number] Medication: 06/05 23:45 VIS not applicable for this client. la4 Intake: 06/06 03:34 IV: 10ml; Total: 10ml. lg3 Outcome: 01:11 Discharge ordered by . rn 02:25 Decision to Hospitalize by Provider. rn 10:28 Admitted to Med/surg accompanied by nurse, via wheelchair, room , with chart, ko1 10:28 Condition: stable 10:28 Instructed on the need for admit, 10:29 Patient left the ED. ko1 Signatures: Dispatcher [employer] EDMS Travis Walls MD MD rn Anne Llamas3 Rowena Gomez RN RN selena3 Maynor Lopez RN RN as6 Chary Montiel RN RN ko1 Sharita Spann RN RN la4 Patricia Romero pm6
[2023-06-06] MEDS ORDERED: ONDANSETRON 4 MG/2 ML VIAL ONE (02:20)
[2023-06-06] MEDS ORDERED: HYDROCODONE/CHLORPHEN 5 ML/OSYR ONE (02:20)
[2023-06-06] MEDS ORDERED: AMOX/K CLAV 875 MG TAB ONE (02:21)
[2023-06-06] MEDS ORDERED: levoFLOXacin 750 MG TAB ONE (02:21)
[2023-06-06] MEDS ORDERED: NA CHLORIDE 0.9% 250 ML ONE (03:00)
[2023-06-06] MEDS ORDERED: AZITHROMYCIN 500 MG INJ IVPB ONE (03:00)
[2023-06-06] MEDS ORDERED: CEFTRIAXONE 1000 MG/VIAL ONE (03:00)
[2023-06-06 03:23] LABS: Absolute Lymphocytes (CBC) 1.3 K/uL (0.7-4.9); Hematocrit 41.8 % (36.0-45.0); Lymphocytes % 8.5 % (15.3-44.8); MCV 84.8 fL (80-100); MPV 8.5 fL (7.6-11.3); Platelets 313 thou/uL (152-406); RBC Red Blood Cell Count 4.94 M/uL (3.86-4.86)
[2023-06-06 03:26] LABS: Protime INR 1.1
[2023-06-06 03:32] LABS: Albumin 3.4 g/dL (3.4-5.0); Bilirubin Total 0.6 mg/dL (0.2-1.0); Protein, Total 7.4 g/dL (6.4-8.2)
[2023-06-06] MEDS ORDERED: ALBUTEROL 2.5 MG/3 ML NEB SOL NEB PRN (06:30)
[2023-06-06] MEDS ORDERED: ONDANSETRON 4 MG/2 ML VIAL IV PRN (06:30)
[2023-06-06] MEDS ORDERED: ACETAMINOPHEN 500 MG TAB PO PRN (06:30)
[2023-06-06] MEDS ORDERED: IPRATROPIUM BROM 0.5MG/2.5ML NEB PRN (06:30)
[2023-06-06 06:58] VITALS: BMI 14.6
[2023-06-06] MEDS ORDERED: IPRATROPIUM BROM 0.5MG/2.5ML ONE (07:08)
[2023-06-06] MEDS ORDERED: ALBUTEROL 2.5 MG/3 ML NEB SOL ONE (07:08)
[2023-06-06] MEDS ORDERED: GUAIFENESIN/DM 5 ML UCUP PO PRN (08:41)
[2023-06-06] MEDS ORDERED: PROMETHAZINE 25 MG TABLET PO PRN (08:42)
[2023-06-06] MEDS ORDERED: CEFTRIAXONE 1,000 MG in NA CHLORIDE 0.9% 50 ML IVPB SCH (12:00)
[2023-06-06] MEDS ORDERED: Levofloxacin500mg IV 500 MG/100 ML BAG IV ONE (12:49)
--- NOTE | 2023-06-06 13:12 | RAD REPORT ---
EXAM DESCRIPTION: RAD - Chest Single View - 06/05/2023 11:34 pm RadLex: XR CHEST 1 VIEW CLINICAL HISTORY: 68 years Female, COUGH COMPARISON: None. FINDINGS: Single AP view of the chest. Cardiac silhouette is not enlarged. There is some mild bilate ral hazy parenchymal opacities with possible underlying coarse interstitial markings. No pleural effu fatmata or pneumothorax. No acute osseous abnormality. IMPRESSION: Mild bilateral hazy parenchymal opacities which could be due to infection. There may be underlying chronic interstitial changes. Electronically signed by: Catrina Alfonso MD 06/05/2023 11:51 PM MALL MANAGER Due to temporary technical issues with the PACS/Fluency reporting system, reports are being signed by the in house radiologist without review as a courtesy to ensure prompt reporting. The interpreting r adiologist is fully responsible for the content of the report.
--- NOTE | 2023-06-06 17:41 | P.SSS ---
Patient History Date of Service: 06/06/23 Reason for admission: COUGH, DYSPNEA FOR A WEEK History of Present Illness: CHUYITA IS RELATIVELY HEALTHY 68 YEARS OLD WHO COMES WITH ABOVE SS FOR A WEEK. SHE HAS BIBASILAR MILD PNEUMONIA. SHE IS IN [facility] FOR IV ABX AND NEBS. FOLLOWING IS HER HISTORY. DJD (degenerative joint disease) [M19.90] 2021 Benign skin lesion excluding plantar wart [L98.9, B07.9, L57.0] 2022 Aortic systolic murmur on examination [I35.8] 2022 Allergic rhinitis [J30.9] 2022 Longitudinal ridging of nail [R23.8] check labs. advised protein and omega 3s check labs. advised protein and omega 3s Hide 2022 Chronic constipation [K59.09] improved with milk of mag and nexabiotic improved with milk of mag and nexabiotic 2022 Dyslipidemia [E78.5] ASCVD 12->7 w hd statin, pt wanting to hold off right now ASCVD 12->7 w hd statin, pt wanting to hold off right now 2022 Prediabetes [R73.03] cardiometabolic plan cardiometabolic plan 2022 Low vitamin D level [R79.89] 5000 IU w K2 5000 IU w K2 2022 Abnormal thyroid blood test [R79.89] low free t3 barely 3.2, thyroid foods and vitacost low free t3 barely 3.2, thyroid foods and vitacost Allergies povidone-iodine [From Betadine] Allergy (Mild, Verified 05/15/12 10:41) Rash soap [From Betadine] Allergy (Mild, Verified 05/15/12 10:41) Rash Home medications list reviewed: Yes - Past Medical/Surgical History Has patient received pneumonia vaccine in the past: No (SHE REFUSED BUT NOW MAY CONSIDER.) Diabetic: No - Social History Smoking Status: Never smoker Alcohol use: No CD- Drugs: No Caffeine use: No Place of Residence: Home Review of Systems 10-point ROS is otherwise unremarkable General: Weakness, Malaise Genitourinary: As per HPI Musculoskeletal: As per HPI Physical Examination - Vital Signs Temperature: 97.0 F Blood Pressure: 114/62 Pulse: 73 Respirations: 18 Pulse Ox (%): 92 - Physical Exam General: Oriented x3, Mild distress HEENT: Atraumatic, PERRLA, Mucous membr. moist/pink, EOMI, Sclerae nonicteric Neck: Supple, 2+ carotid pulse no bruit, No LAD, Without JVD or thyroid abnormality Respiratory: Diminished, Rhonchi/gurgles Cardiovascular: Regular rate/rhythm, Normal S1 S2 Gastrointestinal: Normal bowel sounds, No tenderness Musculoskeletal: No tenderness Integumentary: No rashes Neurological: Normal gait, Normal speech, Normal strength at 5/5 x4 extr, Normal tone, Normal affect Lymphatics: No axilla or inguinal lymphadenopathy - Studies Laboratory Data (last 24 hrs) 06/06/23 06/06/23 06/06/23 02:45 02:45 02:45 WBC 15.30 H Hgb 14.1 Hct 41.8 Plt Count 313 PT 12.1 INR 1.10 APTT 35.5 Sodium 137 Potassium 4.0 BUN 14 Creatinine 0.81 Glucose 170 H Total Bilirubin 0.6 AST 21 ALT 29 Alkaline Phosphatase 139 H Microbiology Data (last 24 hrs): 06/05/23 23:06 Nasopharnyx Influenza Type A Antigen Screen - Final 06/05/23 23:06 Nasopharnyx Influenza Type B Antigen Screen - Final - Diagnosis (Problem(s)) (1) Bacterial pneumonia Current Visit: Yes Status: Acute Plan: ABX IV LEVAQUIN. NEBS. PROGNOSIS FAIR SPUTUM CULTURE. MAY GO HOME IN AM IF STABLE. - Disposition Disposition: ROUTINE DISCHARGE
[2023-06-06] MEDS: ENOXAPARIN 40 MG/0.4 ML SQ SCH (18:00)
[2023-06-06] MEDS: ALBUTEROL 2.5 MG/3 ML NEB SOL NEB SCH (20:55)
[2023-06-06] MEDS: IPRATROPIUM BROM 0.5MG/2.5ML NEB SCH (20:55)
[2023-06-06] MEDS: GUAIFENESIN/DM 5 ML UCUP PO PRN (21:49)
[2023-06-07] MEDS: IPRATROPIUM BROM 0.5MG/2.5ML NEB SCH ×5 (00:37→19:51)
[2023-06-07] MEDS: ALBUTEROL 2.5 MG/3 ML NEB SOL NEB SCH ×5 (00:37→19:52)
[2023-06-07 06:18] LABS: Absolute Lymphocytes (CBC) 1.7 K/uL (0.7-4.9); Hematocrit 38.3 % (36.0-45.0); Lymphocytes % 19.2 % (15.3-44.8); MCV 85.3 fL (80-100); MPV 7.7 fL (7.6-11.3); Platelets 285 thou/uL (152-406); RBC Red Blood Cell Count 4.49 M/uL (3.86-4.86)
[2023-06-07 06:26] LABS: Potassium 4.1 mEq/L (3.5-5.1)
[2023-06-07] MEDS ORDERED: AZITHROMYCIN IV 250 MG in NA CHLORIDE 0.9% 250 ML IVPB SCH (09:00)
[2023-06-07] MEDS: ENOXAPARIN 40 MG/0.4 ML SQ SCH (09:00)
[2023-06-07] MEDS ORDERED: Levofloxacin 250mg IV 250 MG/50 ML BAG IV SCH ×2 (13:00→18:30)
--- NOTE | 2023-06-07 20:53 | P.PN ---
Subjective Date of Service: 06/07/23 Chief Complaint: COUGH, DYSPNEA FOR A WEEK Subjective: Improving LOT BETTER, STILL SOME DYSPNEA. NO CHEST PAIN. Review of Systems 10-point ROS is otherwise unremarkable General: Weakness Physical Examination - Vital Signs Temperature: 98.2 F Blood Pressure: 127/72 Pulse: 84 Respirations: 18 Pulse Ox (%): 96 - Physical Exam General: Oriented x3, Mild distress HEENT: Atraumatic, PERRLA, EOMI Neck: Supple, JVD not distended Respiratory: Diminished, Rhonchi/gurgles Cardiovascular: Regular rate/rhythm, Normal S1 S2 Gastrointestinal: Normal bowel sounds, No tenderness Musculoskeletal: No tenderness Integumentary: No rashes Neurological: Normal speech, Normal tone, Normal affect Lymphatics: No axilla or inguinal lymphadenopathy - Studies Medications List Reviewed: Yes Assessment And Plan - Current Problems (Diagnosis) (1) Bacterial pneumonia Current Visit: Yes Status: Acute Plan: ABX IV LEVAQUIN. NEBS. PROGNOSIS FAIR SPUTUM CULTURE. MAY GO HOME IN AM IF STABLE. CONT ABX FEELS BETTER. ADVISE AMBULATION POSSIBLE DC IN AM.
[2023-06-07] MEDS: GUAIFENESIN/DM 5 ML UCUP PO PRN (22:46)
[2023-06-08] MEDS: ALBUTEROL 2.5 MG/3 ML NEB SOL NEB SCH ×2 (01:02→07:54)
[2023-06-08] MEDS: IPRATROPIUM BROM 0.5MG/2.5ML NEB SCH ×2 (01:02→07:54)
[2023-06-08] MEDS: ENOXAPARIN 40 MG/0.4 ML SQ SCH (09:00)
[2023-06-08 10:23] VITALS: O2SAT 92
[2023-06-08 12:14] VITALS: BP 116/71; TEMP 97.9
--- NOTE | 2023-06-09 13:41 | EKG ---
Test Date: 2023-06-06 Test Time: 03:01:22 Clerical Office: RV MEASUREMENT RESULTS: Intervals: Rate: 85 WV: 136 QRSD: 80 QT: 362 QTc: 430 Hildreth: P: 25 WV: 136 QRS: -4 T: 67 INTERPRETIVE STATEMENTS: Normal sinus rhythm Normal ECG Compared to ECG 05/15/2012 13:11:13 Sinus bradycardia no longer present Sinus arrhythmia no longer present Ventricular premature complex(es) no longer present Electronically Signed On 06-09-23 13:26:39 VIDEO POKER FLOORMAN by Reg Shanks
== END 2023-06-08 12:03 | disposition home or self-care (01) | DRG 195 ==
LOC: ER 22:42 → ERHOLD 06-06 04:20 → 2ND 06-06 09:59
PROVIDERS: ADMIT Internal Medicine; ATTEND Internal Medicine
DX: J15.9 Unspecified bacterial pneumonia (principal); E78.5 Hyperlipidemia, unspecified; Z91.09 Other allergy status, other than to drugs and biological substances; Z90.49 Acquired absence of other specified parts of digestive tract
CPT/HCPCS: 36415; 71045; 80048; 80053; 82947; 83605; 83880; 85025; 85610; 85730; 87040; 87635; 87804; 93005; 94640; 94760; J0696; J1650; J2405; J7050; J7613; J7614; J7644